=== PATIENT | female | born 1940 | race Caucasian/White ===

== ENCOUNTER 2019-05-20 15:45 | Inpatient (IN) | payer MEDICARE, MEDICAID ==
[~2019-05-20] VITALS: Ht 157.5 cm; Wt 75.3 kg
[~2019-05-20 15:45] MED LIST: AMLO10TA80 PO; ASPI-1160 PO; ATOR80TA PO; METF1000 PO; VALS160T2 PO
[2019-05-20] MEDS ORDERED: VISCOUS LIDOCAINE 2% 15 ML UDC PO STA (16:25)
[2019-05-20] MEDS ORDERED: MAGNESIUM/ALUMINUM HYDROXIDE/SIMETHICONE 30ML UDC PO STA (16:25)
[2019-05-20] MEDS ORDERED: FAMOTIDINE 20MG/2ML VIAL IV STA (16:25)
[2019-05-20 16:42] LABS: CLARITY URINE CLEAR (CLEAR); COLOR URINE YELLOW (YELLOW); KETONES URINE NEGATIVE (NEGATIVE); LEUKOCYTE ESTERASE URINE TRACE (NEGATIVE); NITRITE URINE NEGATIVE (NEGATIVE); OCCULT BLOOD URINE NEGATIVE (NEGATIVE); PH URINE 6.5 (4.5-8.0); PROTEIN URINE NEGATIVE (NEGATIVE); SPECIFIC GRAVITY URINE 1.005 (1.005-1.030); UROBILINOGEN URINE 0.2 E.U./dL (0.2-1.0)
[2019-05-20 16:46] LABS: BASOPHILS % 0.7 % (0.0-2.0); EOSINOPHILS % 0.2 % (0.0-5.0); HEMATOCRIT. 33.6 % (36.0-48.0); HEMOGLOBIN. 11.6 g/dL (12.0-16.0); LYMPHOCYTES % 22.4 % (20.0-50.0); MEAN CORPUSCULAR HEMOGLOBIN 29.6 pg (28.0-32.0); MEAN CORPUSCULAR VOLUME 85.8 fL (81.0-99.0); MEAN PLATELET VOLUME 6.9 fl (7.4-10.4); MONOCYTES % 8.5 % (2.0-8.0); NEUTROPHILS % 68.2 % (40.0-76.0); PLATELET 400 x1000/uL (130-400); RED BLOOD CELL COUNT 3.91 mill/uL (4.2-5.4); RED CELL DISTRIBUTION WIDTH 15.5 % (11.6-14.6)
[2019-05-20 16:48] LABS: CHLORIDE 92 mEq/L (98-107)
[2019-05-20 16:49] LABS: PROTHROMBIN TIME 10.2 sec (9.6-11.0)
[2019-05-20] MEDS ORDERED: SODIUM CHLORIDE 0.9% 1,000 ML IV ONE (16:56)
[2019-05-20] MEDS ORDERED: ASPIRIN 325MG TABLET PO ONE (17:30)
[2019-05-20] MEDS ORDERED: MAGNESIUM HYDROXIDE 400MG/5ML 30ML UDC PO PRN (21:00)
[2019-05-20] MEDS ORDERED: TEMAZEPAM 15MG CAPSULE PO PRN (21:00)
[2019-05-20] MEDS ORDERED: CLONIDINE 0.1MG TABLET PO PRN (21:00)
[2019-05-20] MEDS ORDERED: DEXTROSE 50% WATER 50ML SYRINGE IV PRN (21:00)
[2019-05-20] MEDS ORDERED: MAGNESIUM/ALUMINUM HYDROXIDE/SIMETHICONE 30ML UDC PO PRN (21:00)
[2019-05-20] MEDS ORDERED: ONDANSETRON HCL 4MG/2ML INJ IV PRN (21:00)
[2019-05-20] MEDS ORDERED: DIPHENHYDRAMINE 50MG/ML VIAL IV PRN (21:00)
[2019-05-20] MEDS ORDERED: ACETAMINOPHEN 325MG TABLET PO PRN (21:00)
[2019-05-20 22:55] VITALS: BP 167/128
[2019-05-20] MEDS ORDERED: LOSARTAN POTASSIUM 25 MG TABLET PO NR (23:54)
[2019-05-21] VITALS: BP 202/74
[2019-05-21] MEDS ORDERED: HYDRALAZINE 20MG/ML VIAL IV PRN
[2019-05-21] MEDS: BLOOD SUGAR DIAGNOSTIC STRIP TEST SCH ×4 (00:49→17:02)
[2019-05-21] MEDS: PANTOPRAZOLE 40MG DR TABLET PO SCH ×2 (00:49→06:50)
[2019-05-21] MEDS: SUCRALFATE 1 G/10 ML UDC PO SCH ×4 (00:55→16:57)
[2019-05-21] MEDS: INSULIN LISPRO 100 UNITS/ML SUBCUT SCH ×4 (00:56→17:42)
[2019-05-21 04:00] VITALS: BP 132/81
[2019-05-21] MEDS: METFORMIN HCL 500MG TABLET PO SCH ×2 (06:50→17:37)
[2019-05-21] MEDS: GLIMEPIRIDE 2MG TABLET PO SCH ×2 (06:50→17:37)
[2019-05-21] MEDS: SODIUM CHLORIDE 0.9% INJ 3ML FLUSH IVF SCH ×2 (06:51→16:57)
[2019-05-21 08:00] VITALS: BP 156/42
[2019-05-21] MEDS ORDERED: MELOXICAM 7.5MG TABLET PO SCH (09:00)
[2019-05-21] MEDS ORDERED: CLOPIDOGREL 75MG TABLET PO SCH (09:00)
[2019-05-21] MEDS: LOSARTAN POTASSIUM 25 MG TABLET PO SCH ×2 (09:21)
[2019-05-21] MEDS ORDERED: ENOXAPARIN 40MG/0.4ML SYR SUBCUT SCH (10:00)
[2019-05-21] MEDS ORDERED: REGADENOSON 0.4 MG/5 ML IV NR (10:00)
[2019-05-21 10:36] LABS: T4 FREE 1.09 ng/dL (0.76-1.46)
[2019-05-21] MEDS ORDERED: REGADENOSON 0.4 MG/5 ML IV ONE (11:22)
[2019-05-21 12:00] VITALS: BP 183/53
[2019-05-21 16:00] VITALS: BP 145/45
[2019-05-21 16:37] LABS: CREATINE KINASE 35 IU/L (26-192)
[2019-05-21 16:38] LABS: CREATINE KINASE MB FRACTION < 1.0 ng/mL (0.5-3.6)
[2019-05-21 17:24] VITALS: BP 145/45
[2019-05-22] MEDS ORDERED: ASPIRIN 81MG TABLET PO SCH (09:00)
== END 2019-05-21 18:15 | disposition home or self-care (01) | DRG 392 ==
LOC: ER 15:45 → 5WST 18:39 → EDBEDREQ 18:43 → ENRESERV 21:28
PROVIDERS: ADMIT Internal Medicine; ATTEND Internal Medicine
DX: K21.9 Gastro-esophageal reflux disease without esophagitis (principal); E11.65 Type 2 diabetes mellitus with hyperglycemia; E78.5 Hyperlipidemia, unspecified; I10 Essential (primary) hypertension; E66.9 Obesity, unspecified; M19.90 Unspecified osteoarthritis, unspecified site; Z79.82 Long term (current) use of aspirin; Z79.84 Long term (current) use of oral hypoglycemic drugs; Z79.899 Other long term (current) drug therapy; Z90.710 Acquired absence of both cervix and uterus; Z90.49 Acquired absence of other specified parts of digestive tract; Z68.30 Body mass index [BMI] 30.0-30.9, adult
CPT/HCPCS: 36415; 71045; 78452; 80061; 82550; 82553; 82962; 83036; 83605; 83880; 84439; 84443; 84484; 85379; 93005; 93017; 93306; 93970; 96374; 99285; A9500; J1650; J1815; J2785; J3490; J7030

== ENCOUNTER 2019-11-11 11:15 | Emergency (ER) | payer MEDICARE, MEDICAID ==
[~2019-11-11] VITALS: Ht 152.4 cm; Wt 77.0 kg
[2019-11-11] MEDS ORDERED: PROCHLORPERAZINE 10MG/2ML VIAL IV ONE (16:00)
[2019-11-11] MEDS ORDERED: ACETAMINOPHEN 500MG TABLET PO ONE (16:00)
[2019-11-11 16:39] LABS: BASOPHILS % 0.2 % (0.0-2.0); EOSINOPHILS % 0.3 % (0.0-5.0); HEMATOCRIT. 35.8 % (36.0-48.0); HEMOGLOBIN. 12.1 g/dL (12.0-16.0); LYMPHOCYTES % 20.5 % (20.0-50.0); MEAN CORPUSCULAR HEMOGLOBIN 29.9 pg (28.0-32.0); MEAN CORPUSCULAR VOLUME 88.9 fL (81.0-99.0); MEAN PLATELET VOLUME 8.3 fl (7.4-10.4); MONOCYTES % 7.4 % (2.0-8.0); NEUTROPHILS % 71.6 % (40.0-76.0); PLATELET 293 x1000/uL (130-400); RED BLOOD CELL COUNT 4.03 mill/uL (4.2-5.4); RED CELL DISTRIBUTION WIDTH 14.5 % (11.6-14.6)
[2019-11-11 16:41] LABS: CHLORIDE 98 mEq/L (98-107)
[2019-11-11 16:45] LABS: ETHANOL BLOOD < 10 mg/dL
[2019-11-11] MEDS ORDERED: SODIUM CHLORIDE 0.9% 1,000 ML IV ONE (17:04)
[2019-11-11 18:16] LABS: CLARITY URINE CLEAR (CLEAR); COLOR URINE YELLOW (YELLOW); KETONES URINE NEGATIVE (NEGATIVE); LEUKOCYTE ESTERASE URINE 2+ (NEGATIVE); NITRITE URINE NEGATIVE (NEGATIVE); OCCULT BLOOD URINE NEGATIVE (NEGATIVE); PROTEIN URINE 1+ (NEGATIVE); SPECIFIC GRAVITY URINE 1.018 (1.005-1.030); UROBILINOGEN URINE 0.2 E.U./dL (0.2-1.0)
[2019-11-11] MEDS ORDERED: CEFTRIAXONE 1 G PREMIX 50 ML IV ONE (18:30)
[2019-11-11 18:46] LABS: *AMPHETAMINES SCREEN URINE NEGATIVE (NEGATIVE); *BARBITURATES SCREEN URINE NEGATIVE (NEGATIVE); *BENZODIAZEPINES SCREEN URINE NEGATIVE (NEGATIVE); *COCAINE SCREEN URINE NEGATIVE (NEGATIVE); METHADONE URINE SCREEN NEGATIVE (NEGATIVE); OPIATES URINE SCREEN NEGATIVE (NEGATIVE)
[2019-11-11 18:47] LABS: PHENCYCLIDINE URINE SCREEN NEGATIVE (NEGATIVE)
[2019-11-11 18:50] LABS: CANNABINOID URINE SCREEN NEGATIVE (NEGATIVE)
[2019-11-11 19:00] VITALS: BP 145/78
== END 2019-11-11 19:11 | disposition home or self-care (01) ==
LOC: ER 11:15
DX: N39.0 Urinary tract infection, site not specified (principal); R51 Headache; I10 Essential (primary) hypertension; E11.9 Type 2 diabetes mellitus without complications; Z79.899 Other long term (current) drug therapy; Z90.710 Acquired absence of both cervix and uterus
CPT/HCPCS: 36415; 70450; 71045; 80053; 80305; 80320; 81003; 83880; 84484; 85025; 93005; 96365; 96375; 99284; J0696; J0780; G0480

== ENCOUNTER 2021-10-24 09:10 | Inpatient (IN) | payer MEDICARE, MEDICAID ==
[~2021-10-24] VITALS: Ht 152.4 cm; Wt 67.4 kg
[2021-10-24] MEDS ORDERED: CARBAMIDE PEROXIDE 6.5% OTIC SOLN 15ML RIGHT EAR ONE (10:00)
[2021-10-24 10:11] LABS: BASOPHILS % 0.3 % (0.0-2.0); EOSINOPHILS % 0.1 % (0.0-5.0); HEMATOCRIT. 34.5 % (36.0-48.0); HEMOGLOBIN. 11.4 g/dL (12.0-16.0); LYMPHOCYTES % 15.1 % (20.0-50.0); MEAN CORPUSCULAR HEMOGLOBIN 27.2 pg (28.0-32.0); MEAN CORPUSCULAR VOLUME 82.3 fL (81.0-99.0); MONOCYTES % 6.8 % (2.0-8.0); NEUTROPHILS % 77.7 % (40.0-76.0); PLATELET 366 x1000/uL (130-400)
[2021-10-24 10:18] LABS: CHLORIDE 87 mEq/L (98-107)
[2021-10-24 12:04] LABS: CLARITY URINE CLEAR (CLEAR); COLOR URINE YELLOW (YELLOW); KETONES URINE NEGATIVE (NEGATIVE); LEUKOCYTE ESTERASE URINE NEGATIVE (NEGATIVE); NITRITE URINE NEGATIVE (NEGATIVE); OCCULT BLOOD URINE NEGATIVE (NEGATIVE); PROTEIN URINE 1+ (NEGATIVE); SPECIFIC GRAVITY URINE 1.009 (1.005-1.030); UROBILINOGEN URINE 0.2 E.U./dL (0.2-1.0)
[2021-10-24] MEDS ORDERED: HYDROCODONE/ACETAMINOPHEN 5/325MG TABLET PO PRN (16:15)
[2021-10-24] MEDS ORDERED: ONDANSETRON HCL 4MG/2ML INJ IV PRN (16:15)
[2021-10-24] MEDS ORDERED: DOCUSATE SODIUM 100MG CAPSULE PO PRN (16:15)
[2021-10-24] MEDS ORDERED: GUAIFENESIN 200MG/10ML SUGAR FREE UDC PO PRN (16:15)
[2021-10-24] MEDS ORDERED: LORAZEPAM 2MG/ML CPJ IV PRN (16:15)
[2021-10-24] MEDS ORDERED: CLONIDINE 0.1MG TABLET PO PRN (16:15)
[2021-10-24] MEDS ORDERED: ACETAMINOPHEN 325MG TABLET PO PRN (16:15)
[2021-10-24] MEDS ORDERED: NALOXONE HCL 0.4MG/ML VIAL IV PRN (16:30)
[2021-10-24] MEDS: SODIUM CHLORIDE 0.9% 1,000 ML IV SCH (16:57)
[2021-10-24] MEDS ORDERED: ENOXAPARIN 40MG/0.4ML SYR SUBCUT SCH (17:00)
[2021-10-24] MEDS: AMLODIPINE 10MG TABLET PO SCH (17:01)
[2021-10-24 17:38] VITALS: BP 183/65
[2021-10-24] MEDS ORDERED: DEXTROSE 50% WATER 50ML SYRINGE IV PRN (18:00)
[2021-10-24 20:00] VITALS: BP 160/55
[2021-10-24] MEDS ORDERED: BLOOD SUGAR DIAGNOSTIC STRIP TEST SCH (21:00)
[2021-10-24] MEDS: BLOOD SUGAR DIAGNOSTIC STRIP TEST SCH (21:06)
[2021-10-24] MEDS: INSULIN LISPRO 100 UNITS/ML SUBCUT SCH (22:32)
[2021-10-24 23:25] LABS: CREATINE KINASE 38 IU/L (26-192)
[2021-10-25] VITALS: BP 145/55
[2021-10-25] MEDS: SODIUM CHLORIDE 0.9% 1,000 ML IV SCH (05:32)
[2021-10-25] MEDS: BLOOD SUGAR DIAGNOSTIC STRIP TEST SCH (06:14)
[2021-10-25] MEDS: INSULIN LISPRO 100 UNITS/ML SUBCUT SCH (06:43)
[2021-10-25 07:32] LABS: CHLORIDE 92 mEq/L (98-107)
[2021-10-25 07:41] LABS: LDL CHOLESTEROL 101 mg/dL (5-100)
[2021-10-25 07:43] LABS: CREATINE KINASE 41 IU/L (26-192); HDL CHOLESTEROL 55 mg/dL (40-59)
[2021-10-25 07:45] LABS: BASOPHILS % 0.3 % (0.0-2.0); EOSINOPHILS % 0.3 % (0.0-5.0); HEMOGLOBIN. 11.1 g/dL (12.0-16.0); LYMPHOCYTES % 21.7 % (20.0-50.0); MEAN CORPUSCULAR HEMOGLOBIN 27.1 pg (28.0-32.0); MEAN CORPUSCULAR VOLUME 83.3 fL (81.0-99.0); MEAN PLATELET VOLUME 8.1 fl (7.4-10.4); MONOCYTES % 10.7 % (2.0-8.0); PLATELET 333 x1000/uL (130-400); RED BLOOD CELL COUNT 4.08 mill/uL (4.2-5.4)
[2021-10-25] MEDS ORDERED: ASPIRIN 81MG EC TABLET PO SCH (09:00)
[2021-10-25] MEDS: AMLODIPINE 10MG TABLET PO SCH (10:10)
[2021-10-25] MEDS ORDERED: POTASSIUM CHLORIDE 20MEQ TABLET SR PO NR (11:15)
[2021-10-25 11:53] VITALS: BP 133/38
== END 2021-10-25 12:45 | disposition home health service (06) | DRG 641 ==
LOC: ER 09:10 → 7EST 12:57 → EDBEDREQ 13:01 → EDBEDREQTM 13:01 → ENRESERV 13:59 → 7EST 10-25 05:22
PROVIDERS: ADMIT Hospitalist; ATTEND Hospitalist
DX: E87.1 Hypo-osmolality and hyponatremia (principal); R07.89 Other chest pain; F03.90 Unspecified dementia, unspecified severity, without behavioral disturbance, psychotic disturbance, mood disturbance, and anxiety; I10 Essential (primary) hypertension; Z86.73 Personal history of transient ischemic attack (TIA), and cerebral infarction without residual deficits; Z90.710 Acquired absence of both cervix and uterus; Z79.82 Long term (current) use of aspirin; Z79.84 Long term (current) use of oral hypoglycemic drugs; Z79.899 Other long term (current) drug therapy; E11.8 Type 2 diabetes mellitus with unspecified complications
CPT/HCPCS: 36415; 71045; 80053; 80061; 81003; 82550; 82962; 83036; 83880; 84484; 85025; 93005; 93970; 99285; J1650; J1815; J2060

== ENCOUNTER 2022-02-06 04:49 | Inpatient (IN) | payer MEDICARE, MEDICAID ==
[~2022-02-06] VITALS: Ht 152.4 cm; Wt 71.7 kg
[2022-02-06] MEDS ORDERED: ONDANSETRON HCL 4MG/2ML INJ IV STA (05:41)
[2022-02-06] MEDS ORDERED: SODIUM CHLORIDE 0.9% 1,000 ML IV ONE ×2 (05:45→07:45)
[2022-02-06] MEDS ORDERED: KETOROLAC 30MG/ML VIAL IV ONE (05:45)
[2022-02-06 06:12] LABS: BASOPHILS % 0.1 % (0.0-2.0); EOSINOPHILS % 0.1 % (0.0-5.0); HEMATOCRIT. 34.4 % (36.0-48.0); HEMOGLOBIN. 11.7 g/dL (12.0-16.0); LYMPHOCYTES % 14.4 % (20.0-50.0); MEAN CORPUSCULAR HEMOGLOBIN 28.5 pg (28.0-32.0); MEAN CORPUSCULAR VOLUME 84.1 fL (81.0-99.0); MEAN PLATELET VOLUME 7.6 fl (7.4-10.4); MONOCYTES % 8.5 % (2.0-8.0); NEUTROPHILS % 76.9 % (40.0-76.0); PLATELET 311 x1000/uL (130-400); RED CELL DISTRIBUTION WIDTH 17.6 % (11.6-14.6)
[2022-02-06 06:55] LABS: CHLORIDE 86 mEq/L (98-107)
[2022-02-06 08:44] LABS: CLARITY URINE CLEAR (CLEAR); COLOR URINE YELLOW (YELLOW); KETONES URINE NEGATIVE (NEGATIVE); LEUKOCYTE ESTERASE URINE TRACE (NEGATIVE); NITRITE URINE NEGATIVE (NEGATIVE); OCCULT BLOOD URINE NEGATIVE (NEGATIVE); PROTEIN URINE NEGATIVE (NEGATIVE); UROBILINOGEN URINE 0.2 E.U./dL (0.2-1.0)
[2022-02-06] MEDS ORDERED: DEXTROSE 50% WATER 50ML SYRINGE IV PRN (10:30)
[2022-02-06] MEDS ORDERED: ONDANSETRON HCL 4MG/2ML INJ IV PRN (10:30)
[2022-02-06] MEDS: BLOOD SUGAR DIAGNOSTIC STRIP TEST SCH ×3 (11:30→21:05)
[2022-02-06] MEDS: INSULIN LISPRO 100 UNITS/ML SUBCUT SCH ×3 (12:00→21:38)
[2022-02-06 14:02] LABS: SODIUM URINE RANDOM 50 mEq/L
[2022-02-06 15:45] VITALS: BP 142/36
[2022-02-06] MEDS: ACETAMINOPHEN 325MG TABLET PO PRN (16:00)
[2022-02-06 17:31] LABS: CHLORIDE 91 mEq/L (98-107)
[2022-02-06] MEDS: SODIUM CHLORIDE 0.9% 1,000 ML IV SCH ×2 (17:41→23:30)
[2022-02-06 18:00] VITALS: BP 142/36
[2022-02-06 20:00] VITALS: BP 128/78
[2022-02-06] MEDS: INSULIN GLARGINE 100 UNITS/ML SUBCUT SCH (23:28)
[2022-02-07] VITALS: BP 116/44
[2022-02-07 04:00] VITALS: BP 152/53
[2022-02-07] MEDS: BLOOD SUGAR DIAGNOSTIC STRIP TEST SCH ×2 (05:44→12:16)
[2022-02-07] MEDS: ACETAMINOPHEN 325MG TABLET PO PRN (05:44)
[2022-02-07] MEDS: INSULIN LISPRO 100 UNITS/ML SUBCUT SCH ×2 (05:44→12:26)
[2022-02-07 05:58] LABS: BASOPHILS % 0.2 % (0.0-2.0); EOSINOPHILS % 0.5 % (0.0-5.0); HEMATOCRIT. 30.8 % (36.0-48.0); HEMOGLOBIN. 10.3 g/dL (12.0-16.0); LYMPHOCYTES % 18.5 % (20.0-50.0); MEAN CORPUSCULAR HEMOGLOBIN 28.1 pg (28.0-32.0); MEAN CORPUSCULAR VOLUME 83.7 fL (81.0-99.0); MONOCYTES % 8.1 % (2.0-8.0); NEUTROPHILS % 72.7 % (40.0-76.0); PLATELET 291 x1000/uL (130-400); RED BLOOD CELL COUNT 3.67 mill/uL (4.2-5.4); RED CELL DISTRIBUTION WIDTH 17.4 % (11.6-14.6)
[2022-02-07 06:23] LABS: CHLORIDE 101 mEq/L (98-107)
[2022-02-07 06:39] LABS: PHOSPHORUS 2.7 mg/dL (2.5-4.9)
[2022-02-07 08:00] VITALS: BP 159/54
[2022-02-07] MEDS: INSULIN GLARGINE 100 UNITS/ML SUBCUT SCH (10:52)
[2022-02-07 12:00] VITALS: BP 142/52
[2022-02-07] MEDS: SODIUM CHLORIDE 0.9% 1,000 ML IV SCH (12:27)
[2022-02-07 14:23] VITALS: BP 142/42
== END 2022-02-07 15:25 | disposition home or self-care (01) | DRG 641 ==
LOC: ER 04:49 → MICUSO 08:18 → 8WST 14:50
PROVIDERS: ADMIT Internal Medicine; ATTEND Internal Medicine
DX: E87.1 Hypo-osmolality and hyponatremia (principal); E44.1 Mild protein-calorie malnutrition; E87.8 Other disorders of electrolyte and fluid balance, not elsewhere classified; E11.9 Type 2 diabetes mellitus without complications; E66.9 Obesity, unspecified; E78.5 Hyperlipidemia, unspecified; I10 Essential (primary) hypertension; Z82.49 Family history of ischemic heart disease and other diseases of the circulatory system; Z83.3 Family history of diabetes mellitus; Z86.73 Personal history of transient ischemic attack (TIA), and cerebral infarction without residual deficits; Z79.82 Long term (current) use of aspirin; Z79.899 Other long term (current) drug therapy; Z79.84 Long term (current) use of oral hypoglycemic drugs; Z68.30 Body mass index [BMI] 30.0-30.9, adult; K52.9 Noninfective gastroenteritis and colitis, unspecified
CPT/HCPCS: 36415; 71045; 80048; 80053; 81003; 82533; 82962; 83735; 83935; 84100; 84300; 84443; 85025; 93005; 99285; J1815; J1885; J2405; J7030